=== PATIENT | male | born 1970 | race Two or more races ===

== ENCOUNTER 2023-05-11 09:24 | Emergency (ER) | payer BC ==
[~2023-05-11] VITALS: Ht 157.5 cm; Wt 86.0 kg
[2023-05-11 09:41] VITALS: BP 147/59; PULSE 111; RESP 20; O2SAT 84
== END 2023-05-11 12:03 | disposition home or self-care (01) ==
LOC: ER 09:24
DX: M79.10 Myalgia, unspecified site (principal); Z76.0 Encounter for issue of repeat prescription